=== PATIENT | female | born 1970 | race Caucasian/White ===

== ENCOUNTER 2016-11-06 07:51 | Day surgery (SDC) | payer BC ==
--- NOTE | ~2016-11-06 | EGD ---
EGD REPORT [facility] [address] [place]. [address] NAME: KATHLEEN DE LEON : [birth year] STATUS : REG [facility] [place] PAT#: [id number] AGE: 46 ADM/REG DATE : 11/06/16 MR#: [id number] REPORT SERV DATE: 11/06/16 DICTATED BY: NÉSTOR BAIRD DATE: 11/06/16 REPORT STATUS : Draft [facility]ANS[facility]ED [facility]: [facility] DATE: 11/06/16 Endoscopy Center Patient Name: Kathleen De Leon Date of : 1970 Attending MD: NÉSTOR BAIRD MD Procedure Date No Time: 11/06/2016 Procedure: Colonoscopy Indications: Abdominal pain in the left upper quadrant, Change in bowel habits, Last colonoscopy: 2013 Referring MD: NETO MART JR. Medicines: See the Anesthesia note for documentation of the administered medications Complications: No immediate complications. Procedure: Pre-Anesthesia Assessment: - ASA Grade Assessment: III - A patient with severe systemic disease. After I obtained informed consent, the scope was passed under direct vision. Throughout the procedure, the patient's blood pressure, pulse, and oxygen saturations were monitored continuously. The PCF [id number] was introduced through the anus and advanced to the terminal ileum, with identification of the appendiceal orifice and IC valve. The colonoscopy was performed without difficulty. The patient tolerated the procedure well. The quality of the bowel preparation was adequate. Findings: The perianal and digital rectal examinations were normal. Diverticula were found in the sigmoid colon, in the descending colon and in the ascending colon. Internal hemorrhoids were found during retroflexion and were small. A sessile polyp was found in the transverse colon. The polyp was small in size. The polyp was removed with a cold biopsy forceps. Resection and retrieval were complete. Impression: - Diverticulosis in the sigmoid colon, in the descending colon and in the ascending colon. - Internal hemorrhoids. - One small polyp in the transverse colon. Resected and retrieved. Recommendation: - Patient has a contact number available for emergencies. The signs and symptoms of potential delayed complications were discussed with the patient. Return to normal activities tomorrow. Written discharge EGD REPORT [address] [address] NAME: KATHLEEN DE LEON : [birth year] STATUS : REG [facility] [place] PAT#: [id number] AGE: 46 ADM/REG DATE : 11/06/16 MR#: [id number] REPORT SERV DATE: 11/06/16 DICTATED BY: NÉSTOR BAIRD DATE: 11/06/16 REPORT STATUS : Draft TRANSCRIBED BY: [employer] DATE: 11/06/16 instructions were provided to the patient. - Regular diet. - Repeat colonoscopy for surveillance based on pathology results. - Continue present medications. - Suggest you use Benefiber - Follow up with Dr Baird's Nurse practitioner in 6 weeks Procedure Code(s): --- Professional --- 34681, Colonoscopy, flexible, proximal to splenic flexure; with biopsy, single or multiple Diagnosis Code(s): --- Professional --- K64.8, Other hemorrhoids K57.30, Diverticulosis of large intestine without perforation or abscess without bleeding D12.3, Benign neoplasm of transverse colon R10.12, Left upper quadrant pain R19.4, Change in bowel habit CPT copyright 2013 [employer]. All rights reserved. The codes documented in this report are preliminary and upon bulb inspector review may be revised to meet current compliance requirements. Néstor Baird MD NÉSTOR BAIRD MD 11/06/2016 10:08 AM This report has been signed electronically. Number of Addenda: 0 Note Initiated On: 11/06/2016 9:52 AM Scope Withdrawal Time 0 hours 7 minutes 4 seconds [id number] [place] [id number]
--- NOTE | ~2016-11-06 | EGD ---
EGD REPORT [facility] [address] [place]. [address] NAME: KATHLEEN DE LEON : [birth year] STATUS : [facility] [place] PAT#: [id number] AGE: 46 ADM/REG DATE : 11/06/16 MR#: [id number] REPORT SERV DATE: 11/06/16 DICTATED BY: NÉSTOR BARID DATE: 11/06/16 REPORT STATUS : Draft [facility]ANS[facility]IB[facility]: [facility] DATE: 11/06/16 Endoscopy Center Patient Name: Kathleen De Leon Date of : 1970 Attending MD: NÉSTOR BAIRD MD Procedure Date No Time: 11/06/2016 Procedure: Upper GI endoscopy Indications: Abdominal pain in the left upper quadrant, Gastro-esophageal reflux disease Referring MD: NETO MART JR. Medicines: See the Anesthesia note for documentation of the administered medications Complications: No immediate complications. Procedure: Pre-Anesthesia Assessment: - ASA Grade Assessment: III - A patient with severe systemic disease. After obtaining informed consent, the endoscope was passed under direct vision. Throughout the procedure, the patient's blood pressure, pulse, and oxygen saturations were monitored continuously. The GIF H190 [id number] was introduced through the mouth, and advanced to the second part of duodenum. The upper GI endoscopy was accomplished without difficulty. The patient tolerated the procedure well. Findings: The examined duodenum was normal. The entire examined stomach was normal. The cardia and gastric fundus were normal on retroflexion. A small hiatus hernia was present. Impression: - Normal examined duodenum. - Normal stomach. - Hiatus hernia. Recommendation: - Patient has a contact number available for emergencies. The signs and symptoms of potential delayed complications were discussed with the patient. Return to normal activities tomorrow. Written discharge instructions were provided to the patient. - Regular diet. - Continue present medications. - FOR YOUR BIOPSY RESULTS: Please go to [email or web address] and register to receive your results via the portal. Your biopsy results will be EGD REPORT [address] [address] NAME: KATHLEEN DE LEON : [birth year] STATUS : [facility] [place] PAT#: [id number] AGE: 46 ADM/REG DATE : 11/06/16 MR#: [id number] REPORT SERV DATE: 11/06/16 DICTATED BY: NÉSTOR BAIRD DATE: 11/06/16 REPORT STATUS : Draft TRANSCRIBED BY: [employer] DATE: 11/06/16 posted there in about 7 to 10 days. IF you do not see result in 10 days, call office. Procedure Code(s): --- Professional --- 62864, Esophagogastroduodenoscopy, flexible, transoral; diagnostic, including collection of specimen(s) by brushing or washing, when performed (separate procedure) Diagnosis Code(s): --- Professional --- K44.9, Diaphragmatic hernia without obstruction or gangrene R10.12, Left upper quadrant pain K21.9, Gastro-esophageal reflux disease without esophagitis CPT copyright 2013 [employer]. All rights reserved. The codes documented in this report are preliminary and upon simulation software engineer review may be revised to meet current compliance requirements. Néstor Baird MD NÉSTOR BAIRD MD 11/06/2016 9:52 AM This report has been signed electronically. Number of Addenda: 0 Note Initiated On: 11/06/2016 9:39 AM Scope Withdrawal Time 0 hours 0 minutes 0 seconds [id number] [place] [address] [id number]
[~2016-11-06 07:51] MED LIST: ADVAIR INH; ADVAIR100 INH; ALLEGRA 180 MG180 MG OR; ALLEGRA PO; ALLEGRA180 PO; ASAB PO; ASTELIN NAS; BEN25 PO; BENADRYL ALL PO; COREG3 PO; DUONEB IN; EPIPEN0.3 IM; ESTRATEST PO; FLONASE NAS; FROVA2.5 MG PO; NITROSTAT0.4 MG SL; NORV25 PO; PRILO PO; PRILOSEC10 MG PO; PROAIR HFA INH; SINGULAIR1 PO; TESTIM1 % TOP; THYROID; VITAMIN B-2100 MG PO; VITD PO; XOPENEX HFA INH; XOPENEX0.31 MG INH; XOPENEX1.25 MG/1 IN; XOPENEX1.25 MG/3 INH; ZEGERID1 CAP PO
== END 2016-11-06 23:59 | disposition home or self-care (01) ==
LOC: DMU 07:51
PROVIDERS: Internal Medicine Gastroenterology
PROC: 0DJ08ZZ Inspection of Upper Intestinal Tract, Via Natural or Artificial Opening Endoscopic (ICD-10-PCS; principal; 2016-11-06 11:00)
PROC: 0DBL8ZZ Excision of Transverse Colon, Via Natural or Artificial Opening Endoscopic (ICD-10-PCS; 2016-11-06 11:00)
DX: K57.30 Diverticulosis of large intestine without perforation or abscess without bleeding (principal); K44.9 Diaphragmatic hernia without obstruction or gangrene; R10.12 Left upper quadrant pain; K21.9 Gastro-esophageal reflux disease without esophagitis; K64.8 Other hemorrhoids; K63.5 Polyp of colon; R19.4 Change in bowel habit; J45.909 Unspecified asthma, uncomplicated; E05.00 Thyrotoxicosis with diffuse goiter without thyrotoxic crisis or storm; D86.9 Sarcoidosis, unspecified; Z88.0 Allergy status to penicillin; Z91.02 Food additives allergy status; Z88.6 Allergy status to analgesic agent; Z79.899 Other long term (current) drug therapy; Z79.51 Long term (current) use of inhaled steroids; Z79.890 Hormone replacement therapy; G43.909 Migraine, unspecified, not intractable, without status migrainosus; Z88.1 Allergy status to other antibiotic agents; Z91.09 Other allergy status, other than to drugs and biological substances
CPT/HCPCS: 88305; J2250; J2405; J3010